=== PATIENT | female | born 1930 | race Hispanic/Latino ===

== ENCOUNTER 2016-12-19 16:31 | Observation (INO) | payer MEDICARE ==
[2016-12-19 16:43] VITALS: RESP 18
--- NOTE | 2016-12-19 17:20 | ED PDOC ---
Arrival/HPI - General Historian: Patient - History of Present Illness Time/Duration: Other (yesterday) Symptom Onset: Sudden Symptom Course: Unchanged Quality: Other (patient states it feels like something is hitting her) Severity Level: 9 <Sourav Dorsey - Last Filed: 12/19/16 17:13> <Geovany Domínguez DO - Last Filed: 12/19/16 19:00> - General Chief Complaint: Chest Pain Time Seen by Provider: 12/19/16 16:49 - History of Present Illness Narrative History of Present Illness (Text): 12/19/16 17:15 This is an 86 year old female with PMHx CAD s/p CABG, HTN, aortic valve replacement, PVD, pancreatic pseudocyst who presents for complaint of chest pain. Pain began yesterday and is localized along the mid sternum and radiates bilaterally to her upper back. Patient states that pain is constant and she had experienced an episode of diaphoresis yesterday. Patient describes her pain as if something was hitting her rated 9/10. Patient states that she was lifting something heavy on Monday which she is unsure of any contribution to her current pain. Patient states that she currently does not have a PMD as her old one has closed office about 1 year ago. 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 (Sourav Dorsey) Past Medical History - Provider Review Nursing Documentation Reviewed: Yes - Infectious Disease Hx of Infectious Diseases: None - Cardiac Hx Cardiac Disorders: Yes Hx Hypertension: Yes Hx Pacemaker: No - Pulmonary Hx Respiratory Disorders: No - Neurological Hx Neurological Disorder: No Hx Paralysis: No - HEENT Hx HEENT Disorder: Yes Hx Cataracts: Yes - Renal Hx Renal Disorder: No - Endocrine/Metabolic Hx Endocrine Disorders: No - Hematological/Oncological Hx Blood Transfusions: No Hx Blood Transfusion Reaction: No - Integumentary Hx Dermatological Disorder: No - Musculoskeletal/Rheumatological Hx Musculoskeletal Disorders: No - Gastrointestinal Hx Gastrointestinal Disorders: Yes Other/Comment: pancreatic mass - Genitourinary/Gynecological Hx Genitourinary Disorders: No - Psychiatric Hx Emotional Abuse: No Hx Physical Abuse: No Hx Substance Use: No - Surgical History Hx Hysterectomy: Yes Hx Valve Replacement: Yes Other/Comment: cataract surgery - Anesthesia Hx Anesthesia Reactions: No Hx Malignant Hyperthermia: No - Suicidal Assessment Feels Threatened In Home Enviroment: No <Sourav Dorsey - Last Filed: 12/19/16 17:13> Family/Social History - Physician Review Nursing Documentation Reviewed: Yes Family/Social History: No Known Family HX Smoking Status: Never Smoked Hx Alcohol Use: No Hx Substance Use: No <Sourav Dorsey - Last Filed: 12/19/16 17:13> Allergies/Home Meds <Sourav Dorsey - Last Filed: 12/19/16 17:13> <Catrachita Geovany - Last Filed: 12/19/16 19:00> Allergies/Adverse Reactions: Allergies aspirin Allergy (Verified 12/19/16 16:55) RASH Home Medications: Home Meds Medication Instructions Recorded Confirmed ALPRAZolam [Xanax] 0.25 mg PO HS 02/01/15 12/19/16 Metoprolol Succinate [Toprol XL] 50 mg PO QPM 12/19/16 12/19/16 Review of Systems - Review of Systems Constitutional: Normal Eyes: Normal ENT: Normal Respiratory: Normal. absent: SOB Cardiovascular: Chest Pain Gastrointestinal: Normal Genitourinary Female: Normal Musculoskeletal: Back Pain (upper back radiating from the chest) Skin: Normal Neurological: Normal Endocrine: Normal Hemo/Lymphatic: Normal Psychiatric: Normal <Sourav Dorsey - Last Filed: 12/19/16 17:13> Physical Exam Vital Signs Reviewed: Yes Temperature: Afebrile Blood Pressure: Hypertensive Pulse: Regular Respiratory Rate: Normal Appearance: Positive for: Well-Appearing Pain Distress: None Mental Status: Positive for: Alert and Oriented X 3 - Systems Exam Head: Present: Atraumatic, Normocephalic Pupils: Present: PERRL Extroacular Muscles: Present: EOMI Conjunctiva: Present: Normal Mouth: Present: Moist Mucous Membranes Neck: Present: Normal Range of Motion Respiratory/Chest: Present: Clear to Auscultation, Good Air Exchange. No: Accessory Muscle Use Cardiovascular: Present: Regular Rate and Rhythm, Normal S1, S2, Other (chest pain is not reproducible) Abdomen: Present: Normal Bowel Sounds. No: Tenderness, Distention Upper Extremity: Present: Normal Inspection, NORMAL PULSES. No: Edema Lower Extremity: Present: Normal Inspection, NORMAL PULSES, Other (chronic venous stasis changes). No: Edema, CALF TENDERNESS Neurological: Present: GCS=15, CN II-XII Intact Skin: Present: Warm, Dry. No: Rashes Psychiatric: Present: Alert, Oriented x 3 <OlgaSourav hahn - Last Filed: 12/19/16 17:13> Medical Decision Making <OlgaAdalberto hahnlev Chavez - Last Filed: 12/19/16 17:13> <Geovany Domínguez DO - Last Filed: 12/19/16 19:00> ED Course and Treatment: 12/19/16 17:36 EKG, Cardiac ISO, CBC, CMP, Mag, D dimer, Portable CXR, UA EKG shows NSR at rate 79. (Sourav Dorsey) - Lab Interpretations Lab Results: 12/19/16 17:15 12/19/16 17:15 Lab Results 12/19/16 17:15: D-Dimer, Quantitative 2.07 H 12/19/16 17:15: Sodium 140, Potassium 3.5 L, Chloride 103, Carbon Dioxide 30, Anion Gap 11, BUN 21, Creatinine 0.9, Est GFR ( Amer) > 60, Est GFR (Non- Af Amer) 59, Random Glucose 113 H, Calcium 9.7, Magnesium 1.7, Total Bilirubin 0.7, AST 26, ALT 28, Alkaline Phosphatase 81, Lactate Dehydrogenase 457, Total Creatine Kinase 67, Troponin I < 0.01, NT-Pro-B Natriuret Pep 1420 H, Total Protein 6.5, Albumin 4.0, Globulin 2.5, Albumin/Globulin Ratio 1.6 12/19/16 17:15: WBC 6.3, RBC 4.13, Hgb 12.4, Hct 38.1, MCV 92.3, MCH 30.0, MCHC 32.5, RDW 14.2, Plt Count 179, MPV 9.8, Gran % 64.0, Lymph % (Auto) 25.0, Warren % (Auto) 9.2 H, Eos % (Auto) 1.3 L, Baso % (Auto) 0.5, Gran # 4.02, Lymph # 1.6 , Warren # 0.6, Eos # 0.1, Baso # 0.03 - RAD Interpretation Radiology Orders: 12/19/16 16:56 CHEST PORTABLE [RAD] Stat 12/19/16 17:52 ANGIO CHEST PE PROTOCOL [CT] Stat - Medication Orders Current Medication Orders: Discontinued Medications Iohexol (Omnipaque 350 100 Ml) Confirm Administered Dose 350 mg .ROUTE .STK-MED ONE Stop: 12/19/16 18:09 Disposition/Present on Arrival - Present on Arrival History of DVT/PE: No History of Uncontrolled Diabetes: No Urinary Catheter: No History of Decub. Ulcer: No History Surgical Site Infection Following: None <Sourav Dorsey - Last Filed: 12/19/16 17:13> - Present on Arrival Any Indicators Present on Arrival: No - Disposition Have Diagnosis and Disposition been Completed?: Yes Disposition Time: 19:00 <Geovany Domínguez DO - Last Filed: 12/19/16 19:00> - Disposition Diagnosis: Chest pain Disposition: HOSPITALIZED Condition: STABLE Discharge Instructions (ExitCare): Chest Pain (ED) Referrals: Eben Garcia MD [Primary Care Provider] - Follow up with primary Forms: [employer] (Portuguese)
[2016-12-19 17:35] LABS: BASO # 0.03 K/mm3 (0.0-2.0); BASO % 0.5 % (0.0-3.0); EOS # 0.1 (0.0-0.7); EOS % 1.3 % (1.5-5.0); GRAN # 4.02 (1.4-6.5); HEMATOCRIT 38.1 % (36.0-48.0); LYMPH # 1.6 (1.2-3.4); MEAN CELL VOLUME 92.3 fl (80.0-105.0); MEAN CORPUSCULAR HGB CONC 32.5 g/dl (31.0-37.0); MEAN PLATELET VOLUME 9.8 fl (7.0-11.0); MONO # 0.6 (0.1-0.6); MONO % 9.2 % (1.0-6.0); RED CELL DISTRIBUTION WIDTH 14.2 % (11.5-14.5); WHITE BLOOD COUNT 6.3 10^3/ul (4.5-11.0)
[2016-12-19 17:48] LABS: ALB/GLOB RATIO 1.6 (1.1-1.8); ALKALINE PHOSPHATASE 81 U/L (38-126); ALT/SGPT 28 U/L (7-56); AST/SGOT 26 U/L (14-36); BILIRUBIN,TOTAL 0.7 mg/dL (0.2-1.3); BLOOD UREA NITROGEN 21 mg/dL (7-21); CALCIUM 9.7 mg/dL (8.4-10.5); CARBON DIOXIDE 30 mmol/L (21-33); CHLORIDE 103 mmol/L (98-107); GFR AFRICAN-AMERICAN > 60; GLUCOSE,RANDOM 113 mg/dL (70-110); MAGNESIUM 1.7 mg/dL (1.7-2.2); POTASSIUM 3.5 mmol/L (3.6-5.0); SODIUM 140 mmol/L (132-148); TOTAL PROTEIN 6.5 g/dL (5.8-8.3)
[2016-12-19 18:01] LABS: TROPONIN I < 0.01 ng/mL
[2016-12-19] MEDS ORDERED: Iohexol 350 MG/100 ML VIAL ONE (18:08)
--- NOTE | 2016-12-19 18:52 | CT ---
PROCEDURE: CTA chest dated 12/19/2016. HISTORY: Rule out PE COMPARISON: Comparison made with prior CT scan of the abdomen pelvis 09/06/2014 which imaged both lung bases. TECHNIQUE: Axial computed tomography images were obtained of the chest in the pulmonary arterial phase of enhancement. Coronal and sagittal reformatted images were created and reviewed. Intravenous contrast dose: Radiation dose: Total exam DLP = 319.11 mGy-cm. This CT exam was performed using one or more of the following dose reduction techniques: Automated exposure control, adjustment of the mA and/or kV according to patient size, and/or use of iterative reconstruction technique. FINDINGS: PULMONARY ARTERIES: The visualized portions of the pulmonary trunk, right and left main, lobar, segmental and proximal subsegmental branches of the pulmonary arteries are well opacified with no definitive filling defects seen to suggest acute pulmonary embolus. Pulmonary trunk measures approximately 2.3 cm. AORTA: There is mild dilatation of the ascending thoracic aorta which measures nearly 4 cm in transverse dimension. Descending thoracic aorta measures approximately 3.1 cm in transverse dimension. LUNGS: There is mild passive/dependent type atelectasis both posterior lower lung zones right greater than left. May also be some chronic scarring changes in the right posterior sulcus as well as left medial lung base. . No obvious parenchymal masses or nodules. PLEURAL SPACES: Unremarkable. No effusion or pneumothorax HEART: The heart is mildly enlarged. There is left ventricular hypertrophy and dilatation of the left atrium. LYMPH NODES: No lopez significant mediastinal or hilar adenopathy so far as can be seen. Central airways are midline and patent. No endobronchial lesions are identified. BONES, CHEST WALL: Unremarkable. No fracture or destructive lesion OTHER FINDINGS: Re- demonstrated is a large complex appearing cystic lesion (with ring-like internal calcifications and peripheral calcifications) apparently arising from the tail of the pancreas. This lesion measures approximately 7.4 cm trans by 6.7 AP by at least 7.5 cc however note that the inferior margin of this cyst has not been completely imaged on this study. Please refer to prior CT scan and corresponding report 09/06/2014. IMPRESSION: No evidence of acute central pulmonary embolus. There appears to be LVH with dilatation of the left atrium. Re- demonstrated is a large . Aneurysmal dilatation of the ascending thoracic aorta. complex cystic lesion arising from the tail the pancreas as detailed above.
[2016-12-19] MEDS: Potassium Chloride 40 mEq/30 ml LIQ UD PO SCH ×2 (19:43→23:09)
--- NOTE | 2016-12-19 20:39 | CARD ---
APPROVED REPORT EKG Measurement Heart [id number] <Conclusion> Normal sinus rhythm Nonspecific ST and T wave abnormality Abnormal ECG
[2016-12-19 23:17] LABS: CHOLESTEROL 227 mg/dL (130-200)
[2016-12-19 23:58] VITALS: BMI 18.1
[2016-12-20 01:29] VITALS: O2SAT 97
[2016-12-20 01:54] LABS: TROPONIN I < 0.01 ng/mL
[2016-12-20 02:36] LABS: FREE T4 1.12 ng/dL (0.78-2.19); T4 6.6 ug/dL (5.5-11.0)
[2016-12-20 02:49] LABS: THYROID STIMULATING HORMONE 2.05 mIU/mL (0.46-4.68)
[2016-12-20 05:37] LABS: ALB/GLOB RATIO 1.5 (1.1-1.8); ALKALINE PHOSPHATASE 99 U/L (38-126); ALT/SGPT 31 U/L (7-56); AST/SGOT 27 U/L (14-36); BILIRUBIN,TOTAL 0.8 mg/dL (0.2-1.3); BLOOD UREA NITROGEN 17 mg/dL (7-21); CALCIUM 9.5 mg/dL (8.4-10.5); CARBON DIOXIDE 27 mmol/L (21-33); CHLORIDE 104 mmol/L (98-107); GFR AFRICAN-AMERICAN > 60; GLUCOSE,RANDOM 93 mg/dL (70-110); POTASSIUM 4.6 mmol/L (3.6-5.0); SODIUM 139 mmol/L (132-148); TOTAL PROTEIN 6.3 g/dL (5.8-8.3)
[2016-12-20] MEDS ORDERED: Pantoprazole 40 mg EC Tab PO SCH (06:00)
[2016-12-20 06:51] VITALS: TEMP 98.4
[2016-12-20 06:52] LABS: TROPONIN I < 0.01 ng/mL
--- NOTE | 2016-12-20 07:39 | HP ---
HISTORY OF PRESENT ILLNESS: The patient is an 86-year-old female, came to the emergency room, ambulatory, walk-in, complaining of bilateral rib cage pain, midsternal pain, mid back pain since yesterday. Pain was described at 9/10, which increases with breathing. The patient came to the emergency room as a walk-in. According to the ER physician evaluation, the patient's symptoms began yesterday. Pain scale was described a 9/10. REVIEW OF SYSTEMS: 13-system review was done, pertinent positive and negative dictated above. CODE STATUS: The patient's code status is full code. LIVING WILL ADVANCE DIRECTIVE: None. OCCUPATIONAL HISTORY: Disabled. MENSTRUAL HISTORY: Postmenopausal. ALLERGIES: ARE TO ASPIRIN. HEIGHT: 5 feet 2 inches. WEIGHT: 99. BMI: 18. HOME MEDICATIONS: 1. Toprol XL-50 mg daily. 2. Xanax 0.25 at bedtime. SOCIAL HISTORY Denies substance abuse. Denies alcohol. Denies smoking. Denies communicable transmissible disease. PAST MEDICAL AND SURGICAL HISTORY: History of hypertension; history of anxiety disorder; history of coronary artery disease; history of coronary artery bypass graft; history of aortic valve replacement; history of questionable peripheral vascular disease; history of cataracts; history of pancreatic mass, a pseudocyst; history of cataract surgery; history of hysterectomy. The patient's past medical history is also significant for coronary artery bypass, history of angioplasty stent placement, history of dyslipidemia, history of right inguinal hernia repair, history of gastroesophageal reflux. The patient's past medical history is also significant for transient normocytic anemia. The patient's past medical history is significant for non-ST elevation myocardial infarction in 2015, history of hypercholesterolemia, history of transaminitis. The patient's past medical history is significant for history of intrahepatic biliary ductal dilatation, history of cholelithiasis, history of dilated common bile duct of 12 mm, history of pancreatic tail large multicystic lesion, history of mural calcification of the multicystic lesion of the pancreatic tail, history of renal cortical cyst, history of aortic atherosclerosis, history of diverticulosis of the sigmoid colon, history of renal cyst, history of pancreatic tail complex cystic lesion, history of bilateral tibial disease and peripheral vascular disease with ankle-brachial index of the right lower extremity at 0.83, history of ASPIRIN ALLERGY, history of endoscopy done in 2014, history of the right inguinal hernia and right inguinal herniorrhaphy, history of questionable old inferior wall myocardial infarction, history of sinus bradycardia, history of cardiac catheterization done in 2007, history of atrial fibrillation, history of dyslipidemia, history of questionable paroxysmal atrial fibrillation, history of noncompliance with medication, history of near syncope, history of endoscopic ultrasound, history of mucinous cyst pancreatic adenoma. The patient's past medical history is significant for history of extrahepatic biliary ductal dilatation. The patient's past medical history is also significant for poor compliance, history of EGD with biopsy and endoscopic ultrasound. PHYSICAL EXAMINATION: GENERAL: The patient is seen in stretcher #2 in the emergency room. The patient is seen lying in the bed with the patient's spouse at bedside. The patient does not appear to be in any distress. VITAL SIGNS: T-max is 97.4. Telemetry shows sinus rhythm, heart rate in 75 and 79. Blood pressure 148/105, 150/100; respiration 18; O2 sat 98%. HEAD: Normocephalic and atraumatic. HEENT: Examination shows pink conjunctivae. Anicteric sclerae. No oropharyngeal lesion. NECK: No neck rigidity. Soft carotid bruit. CHEST: Kyphosis positive, median sternotomy surgical scar. LUNGS: Examination shows no rhonchi, rales, crackles. CARDIOVASCULAR: Examination S1, S2, regular rhythm. Positive systolic murmur, left second intercostal space, right second intercostal space, left sternal border. ABDOMEN: Soft. Positive bowel sounds. GENITALIA: Female. RECTAL: Examination is deferred. EXTREMITIES: Show no pitting edema, no calf tenderness. No Homans' sign. NEUROLOGIC: The patient is alert, awake, oriented x3. Cranial nerves II-XII limited. Gait examination not tested. MUSCULOSKELETAL: Examination shows decreased muscle mass for her stated age and height to 17.8. DIAGNOSTIC DATA: CBC is within normal limit. D-dimer is elevated at 2.07. Significant abnormal chemistry; potassium 3.5, glucose 113, troponin 0.01. BNP is 1420. The patient was seen in the emergency room. The patient was ordered a chest x-ray, then CT angio was ordered for the patient's symptoms and complaints. Ascending thoracic aorta dilatation 4 cm, descending thoracic aorta dilatation 3.1 cm, bibasilar atelectasis and scarring of the right posterior sulcus, cardiomegaly, left ventricular hypertrophy, left atrial dilatation noted. A large complex cystic lesion in the tail of the pancreas. The patient's chest x-ray film was reviewed. There are some chronic markings noted. EKG shows sinus rhythm, hypertensive cardiovascular disease. The patient was seen in emergency room by Dr. Domínguez. The patient was ordered Plavix 75, potassium 40 and the patient was advised to be admitted for her symptoms of chest pain. IMPRESSION AND PLAN: 1. Chest pain, etiology undetermined. 2. Questionable acute coronary syndrome. 3. Uncontrolled hypertension. 4. Elevated D-dimer of 2.07. 5. Hypokalemia. 6. Hyperglycemia. 7. Elevated BNP, etiology undetermined. 8. Ascending thoracic aorta and descending thoracic aorta dilatation of 4 cm and 3.1 cm respectively. 9. Bibasilar atelectasis, right more than the left with chronic scarring of the right bilateral lung garcia. 10. Cardiomegaly. 11. Hypertensive cardiovascular disease. 12. Pancreatic tail large complex cystic lesion. 13. Hypertensive cardiovascular disease. 14. History of coronary artery disease, coronary artery bypass graft. 15. History of anxiety disorder. 16. History of dyslipidemia. 17. History of poor compliance. PLAN: At this time, the patient is to be placed on telemetry observation. The patient has been ordered serial cardiac enzymes, serial troponin, repeat labs ordered, potassium supplemented. Vitamin D 25-hydroxy, TSH, lipid panel, hemoglobin A1c ordered. The patient has been ordered CRP, myoglobin, erythrocyte sedimentation rate. Cardiology consultation ordered. The patient has been ordered Cozaar 25 mg daily, Lipitor 40 mg daily, Lovenox 40 mg subQ daily, Plavix 75 mg daily, Protonix 40 mg daily, Toprol XL has been resumed at 50 mg p.o. daily. The patient has been resumed on her Xanax 0.25 at bedtime. Repeat EKG ordered. Echo with Doppler ordered. Heart-healthy diet ordered. The patient has been ordered bathroom privileges with assistance. The patient at present is seen in the emergency room, bed #2. The patient's further management will be dependent upon the patient's clinical condition, hemodynamic status and as per the patient's response to therapeutic intervention as per the patient's diagnostic test results and as per recommendation by cardiology, which has been explained and discussed with the patient and the patient's spouse at length and all questions concerned answered to their satisfaction. Dictated and electronically signed, not read. Marco Alvarez MD [facility]
[2016-12-20 09:10] VITALS: BP 170/79
[2016-12-20] MEDS ORDERED: Enoxaparin 40 mg Syringe SC SCH (10:00)
[2016-12-20 10:07] VITALS: PULSE 85
--- NOTE | 2016-12-20 10:57 | RAD ---
HISTORY: chest pain COMPARISON: 02/01/2015 FINDINGS: LUNGS: There is mild pulmonary venous congestion. No focal consolidation. . PLEURA: No significant pleural effusion identified, no pneumothorax apparent. CARDIOVASCULAR: There is borderline cardiomegaly. Status post CABG and prosthetic aortic valve. Atherosclerotic aortic arch calcifications are present. OSSEOUS STRUCTURES: No significant abnormalities. VISUALIZED UPPER ABDOMEN: Normal. OTHER FINDINGS: None. IMPRESSION: Mild pulmonary venous congestion. No active pulmonary disease.
--- NOTE | 2016-12-20 12:22 | CON ---
DATE: 12/20/2016 INDICATION: Chest pain. HISTORY OF PRESENT ILLNESS: This is an 86-year-old woman known to our practice, admitted with chest pain yesterday through the emergency room. She began experiencing mild form of chest pain the night before, but yesterday the chest pain became more severe like a rope tightening around her chest with discomfort in her back rated as 9/10 associated with diaphoresis, but no shortness of breath. The chest pain has subsided, today she is asymptomatic. There was no orthopnea, PND, syncope, presyncope, lightheadedness, dizziness or vertigo. There was no palpitations, edema, claudication, fever, chills, cough, sputum production, hemoptysis, abdominal pain, nausea, vomiting, diarrhea, constipation or melena. PAST MEDICAL HISTORY: Notable for coronary artery disease. She has had coronary bypass surgery and aortic valve replacement. She has hypertension, peripheral vascular disease, pancreatic pseudocyst, an inguinal hernia repair, cataract surgery, and hysterectomy. There is no history of myocardial infarction, congestive heart failure, rheumatic fever, diabetes, stroke, TIA, or gout. MEDICATIONS: At the time of admission included metoprolol and Xanax. ALLERGIES: SHE NOTES AN ALLERGY TO ASPIRIN, WHICH CAUSES A RASH. FAMILY HISTORY: Noncontributory. SOCIAL HISTORY: She lives at home. She does not smoke cigarettes. She does not drink alcohol. She is ambulatory. REVIEW OF SYSTEMS: A 10-point review of systems otherwise unremarkable except as noted above. PHYSICAL EXAMINATION: GENERAL: She is a well-developed elderly woman, lying in bed on telemetry, in no acute distress. VITAL SIGNS: Notable for sinus rhythm at 78 beats per minute. She is afebrile. Blood pressure 150/85, respirations 18, O2 sat 97 to 98% on room air. HEENT: Reveals no neck vein distention, thyromegaly or carotid bruits. Mucous membrane moist. Conjunctivae pink. NECK: Supple. LUNGS: Sandoval clear throughout. HEART: Reveals normal first and second heart sounds. Soft systolic murmur along the left sternal border. ABDOMEN: Soft. Bowel sounds present. No mass, organomegaly, tenderness, rebound, or guarding. No CVA tenderness. No palpable abdominal aortic aneurysm. EXTREMITIES: Reveals no cyanosis, clubbing or edema. NEUROLOGICAL: She is awake, alert and oriented. PSYCHIATRIC: Normal as to mood and affect. SKIN: Warm and dry. No rash or cellulitis. LABORATORY AND IMAGING DATA: A chest x-ray portable study is not interpreted yet. By my reading, it shows cardiomegaly, but no CHF, effusion or infiltrate. The aorta appears tortuous, perhaps dilated. EKG demonstrates regular sinus rhythm with nonspecific ST wave changes. No acute changes. No change from a prior EKG. A CT scan of the chest is noted. There is no evidence of pulmonary embolism. There is aneurysmal dilatation of the ascending thoracic aorta, measured at 4 cm in the transverse dimension. CBC is unremarkable. D-dimer is elevated at 2.07. Electrolytes; BUN, creatinine, blood sugar, and LFTs, all unremarkable. Three CKs negative. Three troponins negative. BNP 1420. Total cholesterol 227, triglycerides 100, LDL 128, and HDL 66. Thyroid function tests are normal. IMPRESSION: Mayuri Barger is an 86-year-old woman admitted with chest pain, which certainly sounds ischemic in nature. She has a history of coronary artery disease, aortic valve replacement. Workup has been negative with 3 sets of negative enzymes and a negative CT scan of the chest for pulmonary embolism and aortic dissection. Her EKG is benign. At this time, she is on Plavix, metoprolol, Protonix, Lipitor, losartan, and Lovenox. I will review her EKG this morning. If no further chest pain occurs, she can be considered for early discharge with outpatient followup by Dr. Eben Garcia, her regular vpk teacher. Outpatient nuclear stress testing and echocardiogram can be arranged at that time. If she has recurring chest pain, consideration should be given to inpatient nuclear stress testing or cardiac catheterization. She can be out of bed and ambulate. I will follow along with you and make additional recommendations based on her clinical course. Monroe Galo MD
--- NOTE | 2016-12-20 14:36 | CP.PCM.DIS ---
<Eduardo Barfield - Last Filed: 12/20/16 14:27> Provider - Provider Date of Admission: 12/19/16 19:18 Attending physician: Marco Alvarez MD Primary care physician: Eben Garcia MD Consults: Cardio: Dr. Garcia Time Spent in preparation of Discharge (in minutes): 45 Hospital Course - Lab Results Lab Results: Most Recent Lab Values WBC 6.3 10^3/ul (4.5-11.0) 12/19/16 17:15 RBC 4.13 10^6/uL (3.5-6.1) 12/19/16 17:15 Hgb 12.4 g/dL (12.0-16.0) 12/19/16 17:15 Hct 38.1 % (36.0-48.0) 12/19/16 17:15 MCV 92.3 fl (80.0-105.0) 12/19/16 17:15 MCH 30.0 pg (25.0-35.0) 12/19/16 17:15 MCHC 32.5 g/dl (31.0-37.0) 12/19/16 17:15 RDW 14.2 % (11.5-14.5) 12/19/16 17:15 Plt Count 179 10^3/uL (120.0-450.0) 12/19/16 17:15 MPV 9.8 fl (7.0-11.0) 12/19/16 17:15 Gran % 64.0 % (50.0-68.0) 12/19/16 17:15 Lymph % (Auto) 25.0 % (22.0-35.0) 12/19/16 17:15 Centre % (Auto) 9.2 % (1.0-6.0) H 12/19/16 17:15 Eos % (Auto) 1.3 % (1.5-5.0) L 12/19/16 17:15 Baso % (Auto) 0.5 % (0.0-3.0) 12/19/16 17:15 Gran # 4.02 (1.4-6.5) 12/19/16 17:15 Lymph # 1.6 (1.2-3.4) 12/19/16 17:15 Centre # 0.6 (0.1-0.6) 12/19/16 17:15 Eos # 0.1 (0.0-0.7) 12/19/16 17:15 Baso # 0.03 K/mm3 (0.0-2.0) 12/19/16 17:15 ESR 5 mm/hr (0.0-20.0) 12/19/16 17:15 D-Dimer, Quantitative 2.07 mg/L FEU (0-0.50) H 12/19/16 17:15 Sodium 139 mmol/L (132-148) 12/20/16 04:30 Potassium 4.6 mmol/L (3.6-5.0) 12/20/16 04:30 Chloride 104 mmol/L (98-107) 12/20/16 04:30 Carbon Dioxide 27 mmol/L (21-33) 12/20/16 04:30 Anion Gap 13 (10-20) 12/20/16 04:30 BUN 17 mg/dL (7-21) 12/20/16 04:30 Creatinine 0.8 mg/dL (0.5-1.4) 12/20/16 04:30 Est GFR ( Amer) > 60 12/20/16 04:30 Est GFR (Non-Af Amer) > 60 12/20/16 04:30 Random Glucose 93 mg/dL (70-110) 12/20/16 04:30 Hemoglobin A1c 5.6 % (4.2-6.5) 12/19/16 17:15 Calcium 9.5 mg/dL (8.4-10.5) 12/20/16 04:30 Magnesium 1.7 mg/dL (1.7-2.2) 12/19/16 17:15 Total Bilirubin 0.8 mg/dL (0.2-1.3) 12/20/16 04:30 AST 27 U/L (14-36) 12/20/16 04:30 ALT 31 U/L (7-56) 12/20/16 04:30 Alkaline Phosphatase 99 U/L (38-126) 12/20/16 04:30 Lactate Dehydrogenase 457 U/L (333-699) 12/19/16 17:15 Total Creatine Kinase 64 U/L (35-230) 12/20/16 04:30 Troponin I < 0.01 ng/mL 12/20/16 04:30 NT-Pro-B Natriuret Pep 1420 pg/mL (0-450) H 12/19/16 17:15 Total Protein 6.3 g/dL (5.8-8.3) 12/20/16 04:30 Albumin 3.8 g/dL (3.0-4.8) 12/20/16 04:30 Globulin 2.5 gm/dL 12/20/16 04:30 Albumin/Globulin Ratio 1.5 (1.1-1.8) 12/20/16 04:30 Triglycerides 100 mg/dL (35-160) 12/19/16 17:15 Cholesterol 227 mg/dL (130-200) H 12/19/16 17:15 LDL Cholesterol Direct 128 mg/dL (0-129) 12/19/16 17:15 HDL Cholesterol 66 mg/dL (29-60) H 12/19/16 17:15 25-OH Vitamin D Total 47.4 NG/ML (30.0-100.0) 12/19/16 17:15 Free T4 1.12 ng/dL (0.78-2.19) 12/19/16 17:15 Thyroxine (T4) 6.6 ug/dL (5.5-11.0) 12/19/16 17:15 TSH 3rd Generation 2.05 mIU/mL (0.46-4.68) 12/19/16 17:15 - Hospital Course Hospital Course: 86yo F with PMHx including Anxiety and HTN, CAD s/p stent, CABG here for evaluation of chest pain. ACS was ruled out with three negative troponins. BNP found to be elevated. Total Cholesterol elevated. HbA1c 5.6. EKG with no specific acute findings. ECHO performed. D-Dimer mildly elevated and patient had CTA with no findings of PE. Patient was resumed on her home meds of Metoprolol and Xanax. We have added Lipitor, Plavix and Cozzar to her regimen. Patient was seen and cleared by cardiology. 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 Garcia as outpatient for recommended stress test and ECHO results. All findings discussed in detail with the patient. All questions addressed. Patient understands and agrees with plan. New prescriptions given to the patient. Patinet is to follow up with Dr. Alvarez within one week. Discharge Exam - Head Exam Head Exam: ATRAUMATIC, NORMAL INSPECTION, NORMOCEPHALIC - Eye Exam Eye Exam: EOMI - ENT Exam ENT Exam: Mucous Membranes Moist - Respiratory Exam Respiratory Exam: UNREMARKABLE. absent: Wheezes, Respiratory Distress - Cardiovascular Exam Cardiovascular Exam: RRR. absent: JVD - GI/Abdominal Exam GI & Abdominal Exam: Soft. absent: Distended, Firm, Guarding, Tenderness - Extremities Exam Extremities exam: normal inspection - Neurological Exam Neurological exam: Alert, Normal Gait, Oriented x3 - Skin Skin Exam: Dry, Intact, Normal Color, Warm Discharge Plan - Discharge Medications Prescriptions: Atorvastatin [Lipitor] 40 mg PO HS #30 tab Clopidogrel [Plavix] 75 mg PO DAILY #30 tab Losartan [Cozaar] 25 mg PO DAILY #30 tab - Follow Up Plan Condition: STABLE Disposition: HOME/ ROUTINE Instructions: Chest Pain (GEN) Additional Instructions: 1. pt is to fu with Dr. Alvarez within 1 week 2. pt is to fu with Cardiology Dr. Garcia for outpt stress test within 1 week. 3. Pt is to take meds as prescribed 4. Pt is welcomed to return to [facility] [place] [facility] if sx change or worsen Referrals: Marco Alvarez MD [Staff Provider] - 1 Week (FOLLOW UP WITHIN 1 WEEK ) Eben Garcia MD [Primary Care Provider] - <Marco Alvarez - Last Filed: 12/21/16 22:28> Provider - Provider Date of Admission: 12/19/16 19:18 Attending physician: Marco Alvarez MD Primary care physician: Eben Garcia MD Hospital Course - Lab Results Lab Results: Most Recent Lab Values WBC 6.3 10^3/ul (4.5-11.0) 12/19/16 17:15 RBC 4.13 10^6/uL (3.5-6.1) 12/19/16 17:15 Hgb 12.4 g/dL (12.0-16.0) 12/19/16 17:15 Hct 38.1 % (36.0-48.0) 12/19/16 17:15 MCV 92.3 fl (80.0-105.0) 12/19/16 17:15 MCH 30.0 pg (25.0-35.0) 12/19/16 17:15 MCHC 32.5 g/dl (31.0-37.0) 12/19/16 17:15 RDW 14.2 % (11.5-14.5) 12/19/16 17:15 Plt Count 179 10^3/uL (120.0-450.0) 12/19/16 17:15 MPV 9.8 fl (7.0-11.0) 12/19/16 17:15 Gran % 64.0 % (50.0-68.0) 12/19/16 17:15 Lymph % (Auto) 25.0 % (22.0-35.0) 12/19/16 17:15 Centre % (Auto) 9.2 % (1.0-6.0) H 12/19/16 17:15 Eos % (Auto) 1.3 % (1.5-5.0) L 12/19/16 17:15 Baso % (Auto) 0.5 % (0.0-3.0) 12/19/16 17:15 Gran # 4.02 (1.4-6.5) 12/19/16 17:15 Lymph # 1.6 (1.2-3.4) 12/19/16 17:15 Centre # 0.6 (0.1-0.6) 12/19/16 17:15 Eos # 0.1 (0.0-0.7) 12/19/16 17:15 Baso # 0.03 K/mm3 (0.0-2.0) 12/19/16 17:15 ESR 5 mm/hr (0.0-20.0) 12/19/16 17:15 D-Dimer, Quantitative 2.07 mg/L FEU (0-0.50) H 12/19/16 17:15 Sodium 139 mmol/L (132-148) 12/20/16 04:30 Potassium 4.6 mmol/L (3.6-5.0) 12/20/16 04:30 Chloride 104 mmol/L (98-107) 12/20/16 04:30 Carbon Dioxide 27 mmol/L (21-33) 12/20/16 04:30 Anion Gap 13 (10-20) 12/20/16 04:30 BUN 17 mg/dL (7-21) 12/20/16 04:30 Creatinine 0.8 mg/dL (0.5-1.4) 12/20/16 04:30 Est GFR ( Amer) > 60 12/20/16 04:30 Est GFR (Non-Af Amer) > 60 12/20/16 04:30 Random Glucose 93 mg/dL (70-110) 12/20/16 04:30 Hemoglobin A1c 5.6 % (4.2-6.5) 12/19/16 17:15 Calcium 9.5 mg/dL (8.4-10.5) 12/20/16 04:30 Magnesium 1.7 mg/dL (1.7-2.2) 12/19/16 17:15 Total Bilirubin 0.8 mg/dL (0.2-1.3) 12/20/16 04:30 AST 27 U/L (14-36) 12/20/16 04:30 ALT 31 U/L (7-56) 12/20/16 04:30 Alkaline Phosphatase 99 U/L (38-126) 12/20/16 04:30 Lactate Dehydrogenase 457 U/L (333-699) 12/19/16 17:15 Total Creatine Kinase 64 U/L (35-230) 12/20/16 04:30 Myoglobin 42 mcg/L (< or = 66) 12/20/16 04:30 Troponin I < 0.01 ng/mL 12/20/16 04:30 Cardiac CRP 3.0 mg/L 12/20/16 04:30 NT-Pro-B Natriuret Pep 1420 pg/mL (0-450) H 12/19/16 17:15 Total Protein 6.3 g/dL (5.8-8.3) 12/20/16 04:30 Albumin 3.8 g/dL (3.0-4.8) 12/20/16 04:30 Globulin 2.5 gm/dL 12/20/16 04:30 Albumin/Globulin Ratio 1.5 (1.1-1.8) 12/20/16 04:30 Triglycerides 100 mg/dL (35-160) 12/19/16 17:15 Cholesterol 227 mg/dL (130-200) H 12/19/16 17:15 LDL Cholesterol Direct 128 mg/dL (0-129) 12/19/16 17:15 HDL Cholesterol 66 mg/dL (29-60) H 12/19/16 17:15 25-OH Vitamin D Total 47.4 NG/ML (30.0-100.0) 12/19/16 17:15 Free T4 1.12 ng/dL (0.78-2.19) 12/19/16 17:15 Thyroxine (T4) 6.6 ug/dL (5.5-11.0) 12/19/16 17:15 TSH 3rd Generation 2.05 mIU/mL (0.46-4.68) 12/19/16 17:15 Attending/Attestation - Attestation I have personally seen and examined this patient.: Yes I have fully participated in the care of the patient.: Yes I have reviewed all pertinent clinical information, including history, physical exam and plan: Yes
[2016-12-20] MEDS ORDERED: Metoprolol Succinate 50 mg XL Tab PO SCH (18:00)
--- NOTE | 2016-12-20 22:49 | CARD ---
APPROVED REPORT EKG Measurement Heart [id number] <Conclusion> Normal sinus rhythm with sinus arrhythmia Normal ECG
--- NOTE | 2016-12-21 06:22 | DS ---
LOCATION: The patient is seen in room 272, bed 2. HISTORY OF PRESENT ILLNESS: The patient is seen earlier by Dr. Galo. The patient is cleared for discharge. The patient's overnight nurses' notes were reviewed. The patient stayed without any specific complaints. When the morning evaluation, the patient completely denies any chest pain, states that she is feeling excellent. PHYSICAL EXAMINATION: VITAL SIGNS: T-max 98.4. Telemetry shows sinus rhythm, heart rate in 70s and 80s, blood pressure 128/80, 140/89, 150/85, 156/58, respirations 18 to 20, O2 sat 97%. HEENT: Head examination is normocephalic and atraumatic. HEENT examination shows pinkish conjunctivae. Anicteric sclerae. No oropharyngeal lesion. No neck rigidity. CHEST EXAMINATION: Kyphosis. LUNGS: Examination shows no rales, crackles, or wheezing. Lung examination shows positive rhonchi bilaterally. CARDIOVASCULAR: S1, S2, regular rhythm. Positive systolic murmur, left sternal border, right second intercostal space, left second intercostal space. Positive median sternotomy surgical scar noted. MUSCULOSKELETAL: Examination shows a decreased muscle mass of 18.1. Motor strength is 5/5 in upper and lower extremity. NEUROLOGIC: Gait examination is deferred. Cranial nerves II-XII limited. DIAGNOSTICS: Sodium 139, potassium 4.6, chloride 104, CO2 27, anion gap 13, BUN 17, creatinine 0.8, GFR greater than 60, glucose 93, hemoglobin A1c 5.6. LFTs are normal. All three sets of troponin is negative. BNP yesterday was 1420. Thyroid panel is within normal limit. Vitamin D25 hydroxy 47.4, cholesterol 227, LDL 128, HDL 66. The patient's CT angio was reviewed. The patient's CAT scan of chest noted. Echocardiogram was done, the results are pending. The patient was seen by Cardiology, Dr. Galo. His recommendation was noted and reinforced to the patient. The patient was seen by Dr. Galo. Cardiology recommend that the patient can have an outpatient nuclear stress test with Dr. Garcia. FINAL IMPRESSION AND DISCHARGE DIAGNOSES: 1. Chest pain and bilateral rib cage pain and back pain, etiology unclear at this time. 2. Uncontrolled hypertension. 3. Elevated D. dimer of 2.07, etiology undetermined. 4. History of coronary artery disease and coronary artery bypass graft and aortic valve replacement. 5. Hypokalemia. 6. Questionable prediabetes with hyperglycemia and a hemoglobin A1c of 5.6. 7. Hypercholesteremia with elevated LDL. 8. 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 9. Bibasilar atelectasis and chronic scarring of the lungs. 10. Cardiomegaly. 11. Left ventricular hypertrophy and left atrial dilatation. 12. Pancreatic tail large complex cystic lesion. 13. Hypertensive cardiovascular disease. 14. Aortic arch calcification. 15. Pulmonary venous congestion. 16. Questionable congestive heart failure, etiology unclear whether systolic versus diastolic. 1. Chest pain, etiology undetermined. 2. Questionable acute coronary syndrome. 3. Uncontrolled hypertension. 4. Elevated D-dimer of 2.07. 5. Hypokalemia. 6. Hyperglycemia. 7. Elevated BNP, etiology undetermined. 8. Ascending thoracic aorta and descending thoracic aorta dilatation of 4 cm and 3.1 cm respectively. 9. Bibasilar atelectasis, right more than the left with chronic scarring of the right bilateral lung garcia. 10. Cardiomegaly. 11. Hypertensive cardiovascular disease. 12. Pancreatic tail large complex cystic lesion. 13. Hypertensive cardiovascular disease. 14. History of coronary artery disease, coronary artery bypass graft. 15. History of anxiety disorder. 16. History of dyslipidemia. 17. History of poor compliance. PLAN: At this time, the patient is cleared for discharge by Dr. Galo. The patient is to be advised to follow up with Dr. Alvarez and Dr. Garcia within one week. The patient was advised outpatient stress test and further cardiac workup and testing with Dr. Garcia. The patient's discharge medications are Cozaar 25 mg daily, Lipitor 40 mg daily, Plavix 75 mg daily, Toprol-XL 50 mg daily, Xanax 0.25 mg h.s. The patient is also discharged on Lipitor 40 mg daily, Cozaar 25 mg daily, which will be adjusted outpatient, Plavix 75 mg daily, Toprol-XL 50 mg daily, Xanax 0.25 mg h.s., which the patient is to resume at home. During this hospitalization, the patient was extensively explained about the details of her medical condition, diagnoses, need for close outpatient followup, which she acknowledged and understand. Time spent in the entire discharge process more than 45 minutes. Dictated and electronically signed, not read. Marco Alvarez MD GARY
--- NOTE | 2016-12-21 09:37 | CARD ---
APPROVED REPORT EXAM: Two-dimensional and M-mode echocardiogram with Doppler and color Doppler. INDICATION CP,AVR,CABG 2D DIMENSIONS Left Atrium (2D)5.0 (1.6-4.0cm)IVSd1.3 (0.7-1.1cm) LVDd3.8 (3.9-5.9cm)PWd1.5 (0.7-1.1cm) LVDs2.7 (2.5-4.0cm)FS (%) 28.0 % LVEF (%)55.0 (>50%) M-Mode DIMENSIONS Aortic Root2.40 (2.2-3.7cm)Aortic Cusp Exc.1.30 (1.5-2.0cm) Aortic Valve AoV Peak Twlwjqnm110.0cm/sAoV VTI44.2cmAO Peak GR.17mmHg LVOT Peak Rcalzejc23.7cm/sLVOT VTI18.60cmAO Mean GR.8mmHg AI P 1/2 [id number] Mitral Valve MV E Irimwsnx29.0cm/sMV A Ojnbtscf25.1cm/sE/A ratio1.1 TDI Lateral E' Peak V5.85cm/sMedial E' Peak V5.07cm/sE/Lateral E'13.5 E/Medial E'15.6 Pulmonary Valve PV Peak Aeknuyyo54.2cm/sPV Peak Grad.2mmHg Tricuspid Valve TR Peak Bqesubqs151rr/sRAP [id number] Peak Gr.45mmHg [id number] LEFT VENTRICLE The left ventricle is normal size. There is mild concentric left ventricular hypertrophy. The left ventricular function is normal. The left ventricular ejection fraction is within the normal range. There is normal LV segmental wall motion. RIGHT VENTRICLE The right ventricle is normal size. The right ventricular systolic function is normal. ATRIA The left atrium is moderately dilated. The right atrium is moderately dilated. The interatrial septum is intact with no evidence for an atrial septal defect. AORTIC VALVE There are normal prosthetic aortic valve gradients. There is a bioprosthetic aortic valve prosthesis. MITRAL VALVE Mitral annular calcification is mild. Mitral regurgitation is moderate. TRICUSPID VALVE The tricuspid valve is normal in structure. There is moderate tricuspid regurgitation. PULMONIC VALVE The pulmonary valve is normal in structure. GREAT VESSELS The aortic root is normal in size. The IVC is normal in size and collapses >50% with inspiration. PERICARDIAL EFFUSION There is no pleural effusion. There is no pericardial effusion. <Conclusion> Biatrial enlargement. Normal LV size and systolic function. Mild concentric LVH. Moderate MR. Moderate TR. Normally functioning aortic bioprosthesis.
== END 2016-12-20 13:55 | disposition home or self-care (01) ==
LOC: ED 16:31 → ERH 19:18 → 2RSO 12-20 00:02
PROVIDERS: ADMIT Internal Medicine; ATTEND Internal Medicine
DX: R07.9 Chest pain, unspecified (principal); I25.10 Atherosclerotic heart disease of native coronary artery without angina pectoris; I11.9 Hypertensive heart disease without heart failure; Z95.1 Presence of aortocoronary bypass graft; Z95.2 Presence of prosthetic heart valve; Z95.5 Presence of coronary angioplasty implant and graft; Z90.710 Acquired absence of both cervix and uterus; Z88.6 Allergy status to analgesic agent; Z79.02 Long term (current) use of antithrombotics/antiplatelets; R79.1 Abnormal coagulation profile; K86.3 Pseudocyst of pancreas; K57.30 Diverticulosis of large intestine without perforation or abscess without bleeding; K21.9 Gastro-esophageal reflux disease without esophagitis; J98.11 Atelectasis; I77.819 Aortic ectasia, unspecified site; I73.9 Peripheral vascular disease, unspecified; I25.2 Old myocardial infarction; E87.6 Hypokalemia; E78.5 Hyperlipidemia, unspecified; E78.00 Pure hypercholesterolemia, unspecified; X50.0XXA Overexertion from strenuous movement or load, initial encounter; Y92.9 Unspecified place or not applicable; M54.89 Other dorsalgia; R40.2412 Glasgow coma scale score 13-15, at arrival to emergency department; I51.7 Cardiomegaly; F41.9 Anxiety disorder, unspecified; K86.2 Cyst of pancreas; M40.204 Unspecified kyphosis, thoracic region; R73.03 Prediabetes; I70.0 Atherosclerosis of aorta; I50.9 Heart failure, unspecified; Z98.49 Cataract extraction status, unspecified eye
CPT/HCPCS: 36415; 71010; 71275; 80053; 80061; 82306; 82550; 83036; 83615; 83735; 83874; 83880; 84439; 84443; 84484; 85025; 85378; 85651; 86141; 93005; 93306; 99285; G0378; J1650; J3480; Q9967